=== PATIENT | female | born 1985 | race Hispanic/Latino ===

== ENCOUNTER 2019-12-05 17:30 | Inpatient (IN) | payer BC, OTHER ==
[~2019-12-05] VITALS: Ht 165.1 cm; Wt 81.6 kg
[2019-12-05] MEDS ORDERED: LACTATED RINGERS 1000ML 1,000 ML IV PRN (17:33)
[2019-12-05] MEDS ORDERED: EPHEDRINE SULFATE 50 MG/ML AMPULE IVP PRN (17:45)
[2019-12-05] MEDS ORDERED: NALOXONE HCL 0.4 MG/1 ML ML IV PRN (17:45)
[2019-12-05] MEDS ORDERED: ROPIVACAINE 0.2% 100ML VIAL 100 ML EP SCH (17:45)
[2019-12-05] MEDS ORDERED: LACTATED RINGERS 500 ML 500 ML IV PRN (17:45)
[2019-12-05] MEDS ORDERED: DINOPROSTONE 10 MG VAGINAL SUPP VG SCH (17:45)
[2019-12-05] MEDS ORDERED: OXYTOCIN-LR 20 UNITS/1000 ML 1,000 ML IV SCH (18:15)
[2019-12-05 18:32] LABS: APPEARANCE,URINE Clear (CLEAR); BILIRUBIN,URINE Negative (NEGATIVE); COLOR,URINE Yellow (YELLOW); GLUCOSE, URINE (UA) Negative (NEGATIVE); KETONES,URINE Negative (NEGATIVE); LEUKOCYTE ESTERASE ,URINE Negative (NEGATIVE); NITRATE,URINE Negative (NEGATIVE); OCCULT BLOOD,URINE Negative (NEGATIVE); PROTEIN,URINE Negative (NEGATIVE); UROBILINOGEN,URINE 0.2 mg/dL (0.2-1.0)
[2019-12-05 18:42] LABS: HEMATOCRIT 36.5 % (36-48); MEAN CORPUSCULAR HEMOGLOBIN 31.9 pg (27.0-33.0); MEAN CORPUSCULAR HGB CONC 35.6 g/dL (32.0-36.0); MEAN CORPUSCULAR VOLUME 89.5 fL (79-99); RED BLOOD CELL COUNT(AUTO) 4.08 MIL/uL (4.00-5.50); RED CELL DISTRIBUTION WIDTH 12.9 % (11.0-15.5); WHITE BLOOD COUNT (AUTO) 9.9 K/uL (4.8-10.8)
[2019-12-05 20:00] VITALS: BP 104/65
[2019-12-05] MEDS ORDERED: PREN1COM14 PO (23:43)
[2019-12-06 09:24] LABS: RAPID PLASMA REAGIN NONREACTIVE (NONREACTIVE)
[2019-12-06] MEDS ORDERED: PROMETHAZINE HCL 25 MG/ML 1ML AMPULE IM PRN (15:00)
[2019-12-06] MEDS ORDERED: MEPERIDINE-PF 50 MG/ML SYG IVP PRN (15:00)
[2019-12-06] MEDS ORDERED: MEPERIDINE-PF 50 MG/ML SYG ONE (15:01)
[2019-12-06] MEDS ORDERED: MORPHINE SULFATE 10 MG/ML 1ML VIAL IM PRN (18:15)
[2019-12-06] MEDS ORDERED: AMPICILLIN 2GM+NS 100ML 100 ML IV ONE (19:11)
[2019-12-07] MEDS: AMPICILLIN 2GM+NS 100ML 100 ML IV SCH ×2 (01:00→07:01)
[2019-12-07 10:14] LABS: HEPATITIS Bs ANTIGEN SCREEN P Negative (Negative)
[2019-12-07] MEDS ORDERED: AMPICILLIN 2GM+NS 100ML 100 ML IV ONE (13:03)
[2019-12-07] MEDS ORDERED: MEPERIDINE-PF 25 MG/ML SYG ONE (17:15)
[2019-12-07] MEDS ORDERED: LIDOCAINE HCL 1% 20 ML VIAL ONE (17:32)
[2019-12-07] MEDS ORDERED: MEASLES/MUMPS/RUBELLA VACCINE, LIVE 0.5 ML/VIAL SQ PRN (18:15)
[2019-12-07] MEDS ORDERED: WITCH HAZEL 1 PAD TP PRN (18:15)
[2019-12-07] MEDS ORDERED: BENZOCAINE/LANOLIN/ALOE VERA 60 ML AEROSOL TP PRN (18:15)
[2019-12-07] MEDS ORDERED: ACETAMINOPHEN 325 MG TAB PO PRN (18:15)
[2019-12-07] MEDS ORDERED: LANOLIN 30GM OINTMENT TP PRN (18:15)
[2019-12-07] MEDS ORDERED: ACETAMINOPHEN-CODEINE 300/30MG TAB PO PRN (18:15)
[2019-12-07] MEDS ORDERED: DIPH,PERTUSS(ACELL),TET VAC/PF 0.5 ML VIAL IM PRN (18:15)
[2019-12-07] MEDS ORDERED: MEPERIDINE-PF 25 MG/ML SYG IVP ONE (18:30)
--- NOTE | 2019-12-07 20:15 | NUR ---
Patient came in from L&D report received from Gonzalez Schuster RN; Patient received via wheelchair accompanied by Gonzalez Camacho RN , Bud Rangel, rivet hammer machine operator and . She has an IV of LR with 20 units Pitocin infusing well. Fundus firm with small Lochia rubra. Patient and oriented to room, call light given. Plan of care discussed, both verbalizes understanding.
[2019-12-07 20:21] VITALS: BP 122/80
[2019-12-07] MEDS: DOCUSATE SODIUM 100 MG CAP PO SCH (21:07)
[2019-12-07] MEDS ORDERED: ASCO-477 PO (22:50)
[2019-12-07] MEDS ORDERED: B12/1TAB PO (22:50)
[2019-12-07 23:21] VITALS: BP 106/63
[2019-12-08] MEDS: IBUPROFEN 600 MG TABLET PO PRN ×3 (02:31→16:34)
[2019-12-08 03:30] VITALS: BP 89/45
[2019-12-08 07:17] VITALS: BP 116/60
[2019-12-08] MEDS: DOCUSATE SODIUM 100 MG CAP PO SCH (09:39)
[2019-12-08 11:18] VITALS: BP 110/80
[2019-12-08 16:26] VITALS: BP 118/75
--- NOTE | 2019-12-08 18:00 | NUR ---
pt is discharged. verbal and written discharge instructions given. informed of the follow up appointment. No prescription given. informed to call her doctor for concerns. pt voiced understanding to all things discussed. Pt is waiting to baby's discharge. Addendum: 12/08/19 at 1816 by FARA ANDERSON RN Amended: Links added.
[2019-12-08 18:57] VITALS: BP 117/81
--- NOTE | 2019-12-08 21:17 | NUR ---
Patient; Patient discharges instruction reviewed advice to follow up with her OB doctor for follow up check up. She was wheeled out via wheelchair with baby on her arms on stable condition accompanied by Jame Wade skid road worker. Patient out of the facility with Baby with her on their private car.
== END 2019-12-08 21:25 | disposition home or self-care (01) | DRG 807 ==
LOC: LDH 17:30 → WSH 12-07 20:15
PROC: 10E0XZZ Delivery of Products of Conception, External Approach (ICD-10-PCS; principal; 2019-12-07)
PROC: 3E0234Z Introduction of Serum, Toxoid and Vaccine into Muscle, Percutaneous Approach (ICD-10-PCS; 2019-12-07)
PROC: 0W8NXZZ Division of Female Perineum, External Approach (ICD-10-PCS; 2019-12-07)
PROC: 3E0134Z Introduction of Serum, Toxoid and Vaccine into Subcutaneous Tissue, Percutaneous Approach (ICD-10-PCS; 2019-12-07)
PROC: 3E0R3BZ Introduction of Anesthetic Agent into Spinal Canal, Percutaneous Approach (ICD-10-PCS; 2019-12-07)
PROC: 00HU33Z Insertion of Infusion Device into Spinal Canal, Percutaneous Approach (ICD-10-PCS; 2019-12-07)
PROC: 10907ZC Drainage of Amniotic Fluid, Therapeutic from Products of Conception, Via Natural or Artificial Opening (ICD-10-PCS; 2019-12-07)
PROC: 3E033VJ Introduction of Other Hormone into Peripheral Vein, Percutaneous Approach (ICD-10-PCS; 2019-12-07)
PROC: 3E0P7VZ Introduction of Hormone into Female Reproductive, Via Natural or Artificial Opening (ICD-10-PCS; 2019-12-07)
DX: O48.0 Post-term pregnancy (principal); Z37.0 Single live birth; O99.62 Diseases of the digestive system complicating childbirth; Z3A.41 41 weeks gestation of pregnancy; Z23 Encounter for immunization; K21.9 Gastro-esophageal reflux disease without esophagitis
CPT/HCPCS: 36415; 81003; 85027; 86592; 86701; 86850; 86900; 86901; 87340; 87390; A4314; G0378; J0290; J2175; J2270; J2590; J2795; J7120